=== PATIENT | male | born 1965 | race Caucasian/White ===

== ENCOUNTER 2017-12-17 12:24 | Day surgery (SDC) | payer OTHER ==
[2017-12-13 10:20] VITALS: BMI 31.1
[~2017-12-17 12:24] MED LIST: LACTATED RINGERS 1,000 ML IV SCH
[2017-12-17 12:58] VITALS: RESP 16; TEMP 98.2
[2017-12-17] MEDS ORDERED: LIDOCAINE 1% 20 ML VIAL (10MG/ML) FOR IV START INTRADERMA ONE (13:06)
[2017-12-17] MEDS ORDERED: LIDOCAINE 1% INJ 10MG/ML (20 ML MDV) ONE (13:12)
[2017-12-17] MEDS ORDERED: PROPOFOL 10 MG/ML 20 ML VIAL IV ONE (13:12)
--- NOTE | 2017-12-17 13:34 | P.PCN ---
Date of Procedure: 12/17/17 Procedure(s) Performed: Procedure: Total colonoscopy. Preoperative diagnosis: Screening for neoplasia. Postoperative diagnosis: Diverticulosis with no evidence of acute diverticulitis , strictures, polyps or cancer. Preparation: HalfLytely prep. Sedation: Was provided by anesthesia. Brief clinical history: The patient is a 52-year-old male who is scheduled for this evaluation for screening for neoplasia age being his risk factor. There is no family history of colon cancer. The patient had no prior colonoscopy. He has no abdominal complaints, bleeding or anemia. Procedure: With the patient on his left lateral decubitus position and after informed consent and adequate sedation, the perianal area was inspected and it did not show any fissures or fistulas. There were no masses felt on digital rectal examination. The Olympus CFQ 160L video colonoscope was then inserted in the rectum in the usual fashion and advanced to the cecum. There were multiple diverticular orifices seen scattered along the length of the bowel, both on the right and left side, with no evidence of acute diverticulitis or strictures. No polyps or tumors were seen. I retroflexed the endoscope in the rectum before the endoscope was withdrawn. The patient tolerated the procedure well. Plan: The patient was reassured. Discussed dietary measures. He will follow up with you as planned. I recommended repeat exam in 10 years.
[2017-12-17 13:54] VITALS: BP 119/78; PULSE 74
== END 2017-12-17 14:14 | disposition home or self-care (01) ==
LOC: ORWHC2ENDO 12:24
DX: Z12.11 Encounter for screening for malignant neoplasm of colon (principal); K57.30 Diverticulosis of large intestine without perforation or abscess without bleeding; Z88.0 Allergy status to penicillin
CPT/HCPCS: J2001; J2704; G0121

== ENCOUNTER → 2019-04-03 | Outpatient (CLI) | payer BC ==
--- NOTE | 2019-04-03 12:16 | ECHOS ---
STRESS ECHOCARDIOGRAM DATE OF SERVICE: 04/03/2019 INDICATIONS: Short of breath. MEDICATIONS: BASELINE HEART RATE: 78 BASELINE BLOOD PRESSURE: 138/75 MAXIMUM HEART RATE: 157 MAXIMUM BLOOD PRESSURE: 190/66 85% MPHR: 141 100% MPHR: 166 METS: 10.9 MAXIMUM STAGE REACHED: V TOTAL EXERCISE TIME: 9 minutes 40 seconds CLINICAL INFORMATION: Patient was exercised for a total period of 9 minutes and 40 seconds. The peak heart rate of 157 was achieved. Maximum blood pressure of 190/66 mmHg was noted. Resting EKG shows normal sinus rhythm with normal CA interval and QRS duration and normal ST-T waves. No ST-segment depression suggestive of ischemia was noted. Intermittent PVCs and PACs were noted. Occasional ventricular couplets were noted. The baseline echocardiographic images reveals normal left ventricular chamber size with normal left ventricular systolic function. In the immediate postexercise period, normal increase in the wall thickness and contractility is noted. FINAL IMPRESSION: 1. This stress echocardiographic study is negative for stress-induced ischemia. 2. EKG portion of the stress is not suggestive of ischemia. 3. Occasional PVCs and occasional ventricular couplets were noted during and in the postexercise period. 4. Patient's exercise tolerance is normal. MMODL / IJN: [id number] /
== END | disposition home or self-care (01) ==
LOC: RADNMMAIN 08:59
PROVIDERS: ATTEND Nurse Practitioner
DX: R06.02 Shortness of breath (principal)
CPT/HCPCS: 93351; Q9950

== ENCOUNTER 2022-10-13 15:13 | Inpatient (IN) | payer OTHER ==
[2022-10-13] MEDS ORDERED: SODIUM CHLORIDE 0.9% 1,000 ML IV STA (15:35)
--- NOTE | 2022-10-13 16:06 | ED ---
Abdominal Pain HPI - General Chief Complaint: Abdominal Pain Stated Complaint: abnormal CT scan Time Seen by Provider: 10/13/22 15:15 Source: patient Mode of arrival: ambulatory Limitations: no limitations - History of Present Illness Initial Comments: 57-year-old male presents to the emergency departments with one week worth of abdominal pain. States that he wanted vacation a week ago and began having significant periumbilical and right-sided abdominal pain. He has seen his primary care physician twice in the past week for this complaint. He had laboratory studies conducted both times. His primary care doctor provided him with bentyl to take for his symptoms. They ordered an outpatient CT which was completed today. After the study was performed it was recommended that the patient come into the emergency department to be immediately evaluated. He states his pain is markedly improved at this time. No fevers. Denies any nausea or vomiting. No diarrhea, constipation, black or bloody stools. No other alleviating, precipitating or modifying factors - Related Data Previous Rx's Medication Instructions Recorded cefUROXime axetiL [Cefuroxime] 500 mg PO BID 10 Days #20 tab 10/17/22 metroNIDAZOLE [Flagyl] 500 mg PO TID 10 Days #30 tab 10/17/22 Allergies Allergy/AdvReac Type Severity Reaction Status Date / Time Penicillins Allergy Unknown Verified 10/13/22 16:08 Childhood Review of Systems ROS Statement: Those systems with pertinent positive or pertinent negative responses have been documented in the HPI. ROS Other: All systems not noted in ROS Statement are negative. Past Medical History Past Medical History: No Reported History History of Any Multi-Drug Resistant Organisms: None Reported Past Surgical History: Back Surgery Additional Past Surgical History / Comment(s): FATTY CYST REMOVED FROM CHEST Past Anesthesia/Blood Transfusion Reactions: Postoperative Nausea & Vomiting (PONV) Past Psychological History: No Psychological Hx Reported Smoking Status: Never smoker Past Alcohol Use History: Rare Past Drug Use History: None Reported - Past Family History Father Family Medical History: Cancer Additional Family Medical History / Comment(s): MELENOMA General Exam Limitations: no limitations General appearance: alert, in no apparent distress Head exam: Present: atraumatic, normocephalic, normal inspection Eye exam: Present: normal appearance, PERRL, EOMI. Absent: scleral icterus, conjunctival injection, periorbital swelling ENT exam: Present: normal exam, mucous membranes moist Neck exam: Present: normal inspection. Absent: tenderness, meningismus, lymphadenopathy Respiratory exam: Present: normal lung sounds bilaterally. Absent: respiratory distress, wheezes, rales, rhonchi, stridor Cardiovascular Exam: Present: regular rate, normal rhythm, normal heart sounds. Absent: systolic murmur, diastolic murmur, rubs, gallop, clicks GI/Abdominal exam: Present: soft, tenderness (mild left periumbilical), normal bowel sounds. Absent: distended, guarding, rebound, rigid Extremities exam: Present: normal inspection, full ROM, normal capillary refill. Absent: tenderness, pedal edema, joint swelling, calf tenderness Back exam: Present: normal inspection Neurological exam: Present: alert, oriented X3, CN II-XII intact Psychiatric exam: Present: normal affect, normal mood Skin exam: Present: warm, dry, intact, normal color. Absent: rash Course Vital Signs 10/13/22 15:15 Temperature 99.6 F Pulse Rate 87 Respiratory 18 Rate Blood Pressure 135/79 O2 Sat by Pulse 98 Oximetry Medical Decision Making - Medical Decision Making Was pt. sent in by a medical professional or institution (, PA, SHEET ROLLER OPERATOR, urgent care, hospital, or senior living...) When possible be specific @ -Outpatient CT Did you speak to anyone other than the patient for history (EMS, parent, family, police, friend...)? What history was obtained from this source @ -No Did you review nursing and triage notes (agree or disagree)? Why? @ -I reviewed and agree with nursing and triage notes Were old charts reviewed (outside hosp., previous admission, EMS record, old EKG, old radiological studies, urgent care reports/EKG's, senior living records)? Report findings @ -old charts were reviewed - outpatient ct from today Differential Diagnosis (chest pain, altered mental status, abdominal pain women, abdominal pain men, vaginal bleeding, weakness, fever, dyspnea, syncope, headache, dizziness, GI bleed, back pain, seizure, CVA, palpatations, mental health, musculoskeletal)? @ diverticulitis, free air, colonic mass EKG interpreted by me (3pts min.). @ -yes X-rays interpreted by me (1pt min.). @ - none done CT interpreted by me (1pt min.). @ -None done U/S interpreted by me (1pt. min.). @ -None done What testing was considered but not performed or refused? (CT, X-rays, U/S, labs)? Why? @ -None What meds were considered but not given or refused? Why? @ -None Did you discuss the management of the patient with other professionals (p madayfessionals i.e. , PA, SHEET ROLLER OPERATOR, lab, RT, psych nurse, social media marketing manager, quantitative associate, teacher, security flex officer, case management associate)? Give summary @ -Dr. Rodney Was smoking cessation discussed for >3mins.? @ -No Was critical care preformed (if so, how long)? @ -No Were there social determinants of health that impacted care today? How? (Homelessness, low income, unemployed, alcoholism, drug addiction, t ransportation, low edu. Level, literacy, decrease access to med. care, nursing home, rehab)? @ -No Was there de-escalation of care discussed even if they declined (Discuss DNR or withdrawal of care, Hospice)? DNR status @ -No What co-morbidities impacted this encounter? (DM, HTN, Smoking, COPD, CAD, Cancer, CVA, ARF, Chemo, Hep., AIDS, mental health diagnosis, sleep apnea, morbid obesity)? @ -None Was patient admitted / discharged? Hospital course, mention meds given and route, prescriptions, significant lab abnormalities, going to OR and other pertinent info. @ -Upon arrival the patient is placed into trauma 1. History and physical exam is performed. I did review the patient's CT which demonstrated acute diverticulitis with perforation. Called and spoke with Dr. Rodney who is on-call for surgery. She does review the patient's CT. Recommended bowel rest and p ain medications. Antibiotics and fluids. She requested patient be admitted to medicine with her to consult. I called and spoke with Dr. velásquez who was agreeable to admit the patient. He is taking to the floor in stable condition Undiagnosed new problem with uncertain prognosis? @ -No Drug Therapy requiring intensive monitoring for toxicity (Heparin, Nitro, Insulin, Cardizem)? @ -No Were any procedures done? @ -No Diagnosis/symptom? @ -acute abd pain, diverticulitis with perf Acute, or Chronic, or Acute on Chronic? @ -acute Uncomplicated (without systemic symptoms) or Complicated (systemic symptoms)? @ -complicated Side effects of treatment? @ -No Exacerbation, Progression, or Severe Exacerbation? @ -No Poses a threat to life or bodily function? How? (Chest pain, USA, MT, pneumonia, PE, COPD, DKA, ARF, appy, cholecystitis, CVA, Diverticulitis, Homicidal, Suicidal, threat to staff... and all critical care pts) @ -yes - Lab Data Result diagrams: 10/17/22 07:34 10/17/22 07:34 Lab Results 10/13/22 10/13/22 10/13/22 Range/Units 16:00 16:00 16:00 WBC 12.2 H (3.8-10.6) k/uL RBC 4.59 (4.30-5.90) m/uL Hgb 14.3 (13.0-17.5) gm/dL Hct 41.6 (39.0-53.0) % MCV 90.6 (80.0-100.0) fL MCH 31.1 (25.0-35.0) pg MCHC 34.3 (31.0-37.0) g/dL RDW 12.0 (11.5-15.5) % Plt Count 320 (150-450) k/uL MPV 7.1 Neutrophils % 78 % Lymphocytes % 13 % Monocytes % 5 % Eosinophils % 1 % Basophils % 0 % Neutrophils # 9.5 H (1.3-7.7) k/uL Lymphocytes # 1.6 (1.0-4.8) k/uL Monocytes # 0.6 (0-1.0) k/uL Eosinophils # 0.1 (0-0.7) k/uL Basophils # 0.0 (0-0.2) k/uL PT 10.7 (9.0-12.0) sec INR 1.0 (<1.2) APTT 24.2 (22.0-30.0) sec Sodium 134 L (137-145) mmol/L Potassium 3.9 (3.5-5.1) mmol/L Chloride 101 (98-107) mmol/L Carbon Dioxide 23 (22-30) mmol/L Anion Gap 10 mmol/L BUN 12 (9-20) mg/dL Creatinine 1.06 (0.66-1.25) mg/dL Est GFR (CKD-EPI)AfAm 90 (>60 ml/min/1.73 sqM) Est GFR (CKD-EPI)NonAf 78 (>60 ml/min/1.73 sqM) Glucose 97 (74-99) mg/dL Plasma Lactic Acid Moses (0.7-2.0) mmol/L Calcium 9.0 (8.4-10.2) mg/dL Total Bilirubin 0.6 (0.2-1.3) mg/dL AST 28 (17-59) U/L ALT 43 (4-49) U/L Alkaline Phosphatase 90 (38-126) U/L Total Protein 7.7 (6.3-8.2) g/dL Albumin 4.1 (3.5-5.0) g/dL Lipase 205 (23-300) U/L 10/13/22 Range/Units 16:00 WBC (3.8-10.6) k/uL RBC (4.30-5.90) m/uL Hgb (13.0-17.5) gm/dL Hct (39.0-53.0) % MCV (80.0-100.0) fL MCH (25.0-35.0) pg MCHC (31.0-37.0) g/dL RDW (11.5-15.5) % Plt Count (150-450) k/uL MPV Neutrophils % % Lymphocytes % % Monocytes % % Eosinophils % % Basophils % % Neutrophils # (1.3-7.7) k/uL Lymphocytes # (1.0-4.8) k/uL Monocytes # (0-1.0) k/uL Eosinophils # (0-0.7) k/uL Basophils # (0-0.2) k/uL PT (9.0-12.0) sec INR (<1.2) APTT (22.0-30.0) sec Sodium (137-145) mmol/L Potassium (3.5-5.1) mmol/L Chloride (98-107) mmol/L Carbon Dioxide (22-30) mmol/L Anion Gap mmol/L BUN (9-20) mg/dL Creatinine (0.66-1.25) mg/dL Est GFR (CKD-EPI)AfAm (>60 ml/min/1.73 sqM) Est GFR (CKD-EPI)NonAf (>60 ml/min/1.73 sqM) Glucose (74-99) mg/dL Plasma Lactic Acid Moses 1.1 (0.7-2.0) mmol/L Calcium (8.4-10.2) mg/dL Total Bilirubin (0.2-1.3) mg/dL AST (17-59) U/L ALT (4-49) U/L Alkaline Phosphatase (38-126) U/L Total Protein (6.3-8.2) g/dL Albumin (3.5-5.0) g/dL Lipase (23-300) U/L - EKG Data EKG Comments: EKG demonstrates sinus rhythm with a rate of 97. SD interval 147. QRS 84. Qtc 395. No acute ST segment elevations or depressions Disposition Clinical Impression: Diverticulitis of colon with perforation, Abdominal pain Disposition: ADMITTED IP TO THIS [facility] Condition: Stable Is patient prescribed a controlled substance at d/c from ED?: No Time of Disposition: 16:18 Decision to Admit Reason: Admit from EC Decision Date: 10/13/22 Decision Time: 16:18
[2022-10-13 16:10] LABS: Basophils % (A) 0 %; Eosinophils # (A) 0.1 k/uL (0-0.7); Eosinophils % (A) 1 %; HCT 41.6 % (39.0-53.0); HGB 14.3 gm/dL (13.0-17.5); Lymphocytes # (A) 1.6 k/uL (1.0-4.8); Lymphocytes % (A) 13 %; MCH 31.1 pg (25.0-35.0); MCHC 34.3 g/dL (31.0-37.0); MCV 90.6 fL (80.0-100.0); Mean Platelet Volume 7.1; Monocytes # (A) 0.6 k/uL (0-1.0); Monocytes % (A) 5 %; Neutrophils # (A) 9.5 k/uL (1.3-7.7); Neutrophils % (A) 78 %; Platelet Count 320 k/uL (150-450); RBC 4.59 m/uL (4.30-5.90); WBC 12.2 k/uL (3.8-10.6)
[2022-10-13 16:20] LABS: Partial Thromboplastin Time 24.2 sec (22.0-30.0); Prothrombin Time 10.7 sec (9.0-12.0)
[2022-10-13 16:25] LABS: Albumin 4.1 g/dL (3.5-5.0); Potassium 3.9 mmol/L (3.5-5.1); Total Bilirubin 0.6 mg/dL (0.2-1.3); Total Protein 7.7 g/dL (6.3-8.2)
[2022-10-13] MEDS ORDERED: metroNIDAZOLE-NS PMX 500 MG in SALINE 1 100ML.BAG IVPB ONE (16:30)
[2022-10-13] MEDS ORDERED: LEVOFLOXACIN 750MG-D5W PMX 750 MG in DEXTROSE/WATER 1 150ML.BAG IVPB ONE (16:30)
[2022-10-13] MEDS ORDERED: MORPHINE SULFATE 4 MG/ML SYRINGE IV PRN (16:57)
[2022-10-13] MEDS ORDERED: NALOXONE 0.4 MG/ML 1 ML VIAL IV PRN (16:57)
[2022-10-13] MEDS ORDERED: IBUPROFEN 400 MG TAB PO PRN (16:57)
[2022-10-13] MEDS ORDERED: HYDROcodone/APAP 5-325MG 1 EACH TAB PO PRN (16:57)
[2022-10-13] MEDS ORDERED: ONDANSETRON 4 MG/2 ML VIAL IVP PRN (16:57)
[2022-10-13] MEDS ORDERED: SODIUM CHLORIDE 0.9% 1,000 ML IV SCH (17:00)
[2022-10-13] MEDS: DEXTROSE 5%-0.9% NACL 1,000 ML IV SCH (18:01)
[2022-10-13] MEDS: ACETAMINOPHEN TAB 325 MG TAB PO PRN (20:43)
--- NOTE | 2022-10-13 22:39 | P.HPIM ---
History of Present Illness This is a pleasant 57 years old male with no significant past medical history Presents because of abdominal pain as he describes as stomach and has been going on about 10 days He followed up with his PCP Dr. Perkins and he saw twice for his abdominal pain, last time he ordered a CT of the abdomen and That he was called and asked him to come to the emergency room. His pain is described as 2-3/10 in severity Rupa is much milder compared to last week as he describes, he is in the right mid abdomen. Nonradiating. Feels like cramping He states that he has some diarrhea and vomiting 1 week ago but now all these are when awake. Last bowel movement was twice this morning one of them was fine and the other one was close. No blood in the stool or vomiting. He denies any urinary symptoms, no chest pain dyspnea, no headache perfusion weakness or numbness He denies smoking alcohol or illicit drugs He had a fever of 100.4 on admission rest of vitals are unremarkable. He has mild leukocytosis of 12.2. Rest of CBC, BMP and liver enzymes are unremarkable. Lipase normal 205. EKG showing normal sinus rhythm at [address]-T changes Patient has CT report from this morning showing complicated diverticulitis with perforation and free air. Clearly abscess formation measuring 2.8 x 2.6 cm. This is not amenable to percutaneous access for drainage. Surgical consultation recommended. Colonic diverticulosis patient was started on D5 normal saline and Levaquin and Flagyl Review of Systems Review of systems CONSTITUTIONAL: No fever, no malaise, no fatigue. HEENT: No recent visual problems or hearing problems. Denied any sore throat. CARDIOVASCULAR: No orthopnea, PND, no palpitations, no syncope. PULMONARY: No shortness of breath, no cough, no hemoptysis. GASTROINTESTINAL: No diarrhea, no nausea, . Normoactive bowel sounds. NEUROLOGICAL: No headaches, no weakness, no numbness. HEMATOLOGICAL: Denies any bleeding or petechiae. GENITOURINARY: Denies any burning micturition, frequency, or urgency. MUSCULOSKELETAL/RHEUMATOLOGICAL: Denies any joint pain, swelling, or any muscle pain. ENDOCRINE: Denies any polyuria or polydipsia. Past Medical History Past Medical History: No Reported History History of Any Multi-Drug Resistant Organisms: None Reported Past Surgical History: Back Surgery Additional Past Surgical History / Comment(s): FATTY CYST REMOVED FROM CHEST Past Anesthesia/Blood Transfusion Reactions: Postoperative Nausea & Vomiting (PONV) Past Psychological History: No Psychological Hx Reported Smoking Status: Never smoker Past Alcohol Use History: Rare Past Drug Use History: None Reported - Past Family History Father Family Medical History: Cancer Additional Family Medical History / Comment(s): MELENOMA Medications and Allergies Home Medications Medication Instructions Recorded Confirmed Type No Known Home Medications 12/13/17 10/13/22 History Allergies Allergy/AdvReac Type Severity Reaction Status Date / Time Penicillins Allergy Unknown Verified 10/13/22 16:08 Childhood Physical Exam Vitals: Vital Signs Temp Pulse Pulse Resp BP BP Pulse Ox 10/13/22 19:14 100.4 F H 89 15 143/81 96 10/13/22 18:02 98.3 F 89 18 143/77 97 10/13/22 17:50 96 18 127/69 98 10/13/22 15:15 99.6 F 87 18 135/79 98 Intake and Output 10/13/22 10/13/22 10/13/22 06:59 14:59 22:59 Output Total 0 Balance 0 Output: Urine 0 Other: Voiding Method Toilet Weight 109.724 kg GENERAL: The patient is alert and oriented x3, not in any acute distress. Well developed, well nourished. HEENT: Pupils are round and equally reacting to light. EOMI. No scleral icterus. No conjunctival pallor. Normocephalic, atraumatic. No pharyngeal erythema. No thyromegaly. CARDIOVASCULAR: S1 and S2 present. No murmurs, rubs, or gallops. PULMONARY: Chest is clear to auscultation, no wheezing or crackles. -ABDOMEN: Soft, mild right mid abdominal tenderness, no guarding or rebound tenderness, nondistended, normoactive bowel sounds. No palpable organomegaly. MUSCULOSKELETAL: No joint swelling or deformity. EXTREMITIES: No cyanosis, clubbing, or pedal edema. NEUROLOGICAL: Gross neurological examination did not reveal any focal deficits. SKIN: No rashes. no petechiae. Results CBC & Chem 7: 10/13/22 16:00 10/13/22 16:00 Labs: Abnormal Lab Results - Last 24 Hours (Table) 10/13/22 10/13/22 Range/Units 16:00 16:00 WBC 12.2 H (3.8-10.6) k/uL Neutrophils # 9.5 H (1.3-7.7) k/uL Sodium 134 L (137-145) mmol/L Thrombosis Risk Factor Assmnt - Choose All That Apply Any of the Below Risk Factors Present?: No Other Risk Factors: No Other congenital or acquired thrombophilia - If yes, enter type in comment: No Thrombosis Risk Factor Assessment Level: Very Low Risk Assessment and Plan Assessment: acute complicated diverticulitis with perforation and abscess Sepsis with mild fever and leukocytosis secondary to above Abdominal pain secondary to above Obesity with BMI of 32.8 Colonic diverticulosis Plan: Continue with antibiotic Flagyl and Levaquin Surgical team consult Continue gentle hydration Bowel rest Pain medication Labs and medication were reviewed.. Continue same treatment. Continue with symptomatic treatment. Resume home medication. Monitor labs and vitals. DVT and GI prophylaxis. Further recommendations as per clinical course of the patient DVT prophylaxis: Subcutaneous heparin GI Prophylaxis: Pepcid Prognosis is guarded
[2022-10-14] MEDS: metroNIDAZOLE-NS PMX 500 MG in SALINE 1 100ML.BAG IVPB SCH ×3 (00:13→15:27)
[2022-10-14] MEDS: DEXTROSE 5%-0.9% NACL 1,000 ML IV SCH ×2 (01:12→21:22)
[2022-10-14] MEDS: HEPARIN SODIUM,PORCINE/PF 5,000 UNIT/0.5 ML SYRINGE SQ SCH ×2 (09:53→21:22)
[2022-10-14] MEDS: FAMOTIDINE 20 MG/2 ML VIAL IV SCH ×2 (09:53→21:22)
[2022-10-14 13:35] LABS: African American GFR (CKD) 85.3 (60.0-200.0); Anion Gap 12.3 mmol/L (10.00-18.00); BUN/Creat Ratio 8.27 Ratio (12.00-20.00); Blood Urea Nitrogen 9.1 mg/dL (9.0-27.0); Calcium 8.9 mg/dL (8.7-10.3); Carbon Dioxide 20.7 mmol/L (20.0-27.5); Non-African American GFR(CKD) 73.6 (60.0-200.0)
[2022-10-14 14:50] LABS: Basophils # (A) 0.03 X 10*3/uL (0.00-0.10); Basophils % (A) 0.2 %; Eosinophils # (A) 0.02 X 10*3/uL (0.04-0.35); Eosinophils % (A) 0.2 %; HCT 40.3 % (39.6-50.0); HGB 13.8 g/dL (13.0-17.0); Immature Grans, Automated 0.5 %; Lymphocytes # (A) 1.82 X 10*3/uL (0.90-5.00); Lymphocytes % (A) 13.7 %; MCH 31.2 pg (27.0-32.0); MCHC 34.2 g/dL (32.0-37.0); Mean Platelet Volume 9.7 fL (9.5-12.2); Monocytes # (A) 1.08 X 10*3/uL (0.20-1.00); Monocytes % (A) 8.2 %; NRBC Per 100 WBC 0 /100 WBCS (0.0-0.0); Neutrophils # (A) 10.23 X 10*3/uL (1.80-7.70); Neutrophils % (A) 77.2 %; Platelet Count 265 X 10*3/uL (140-440); RBC 4.43 X 10*6/uL (4.40-5.60); WBC 13.24 X 10*3/uL (4.50-10.00)
[2022-10-14 14:51] LABS: RBC Morphology NORMAL
[2022-10-14] MEDS: ACETAMINOPHEN TAB 325 MG TAB PO PRN ×2 (15:27→21:22)
[2022-10-14] MEDS ORDERED: LEVOFLOXACIN 750MG-D5W PMX 750 MG in DEXTROSE/WATER 1 150ML.BAG IVPB SCH (16:00)
--- NOTE | 2022-10-14 18:01 | P.PN ---
Subjective This is a pleasant 57 years old male with no significant past medical history Presents because of abdominal pain as he describes as stomach and has been going on about 10 days He followed up with his PCP Dr. Perkins and he saw twice for his abdominal pain, last time he ordered a CT of the abdomen and That he was called and asked him to come to the emergency room. His pain is described as 2-3/10 in severity Rupa is much milder compared to last week as he describes, he is in the right mid abdomen. Nonradiating. Feels like cramping He states that he has some diarrhea and vomiting 1 week ago but now all these are when awake. Last bowel movement was twice this morning one of them was fine and the other one was close. No blood in the stool or vomiting. He denies any urinary symptoms, no chest pain dyspnea, no headache perfusion weakness or numbness He denies smoking alcohol or illicit drugs He had a fever of 100.4 on admission rest of vitals are unremarkable. He has mild leukocytosis of 12.2. Rest of CBC, BMP and liver enzymes are unre markable. Lipase normal 205. EKG showing normal sinus rhythm at [address]-T changes Patient has CT report from this morning showing complicated diverticulitis with perforation and free air. Clearly abscess formation measuring 2.8 x 2.6 cm. This is not amenable to percutaneous access for drainage. Surgical consultation recommended. Colonic diverticulosis patient was started on D5 normal saline and Levaquin and Flagyl Objective - Vital Signs Vital signs: Vital Signs Temp 99.6 F 10/14/22 06:53 Pulse 95 10/14/22 06:53 Resp 16 10/14/22 06:53 BP 128/73 10/14/22 06:53 Pulse Ox 94 L 10/14/22 06:53 FiO2 Intake & Output 10/13/22 10/14/22 10/14/22 18:59 06:59 18:59 Output Total 0 Balance 0 Weight 109.724 kg Output: Urine 0 Other: Voiding Method Toilet # Voids 3 - Exam GENERAL: The patient is alert and oriented x3, not in any acute distress. Well developed, well nourished. HEENT: Pupils are round and equally reacting to light. EOMI. No scleral icterus. No conjunctival pallor. Normocephalic, atraumatic. No pharyngeal erythema. No thyromegaly. CARDIOVASCULAR: S1 and S2 present. No murmurs, rubs, or gallops. PULMONARY: Chest is clear to auscultation, no wheezing or crackles. -ABDOMEN: Soft, mild RLQ tenderness, nondistended, normoactive bowel sounds. No palpable organomegaly. MUSCULOSKELETAL: No joint swelling or deformity. EXTREMITIES: No cyanosis, clubbing, or pedal edema. NEUROLOGICAL: Gross neurological examination did not reveal any focal deficits. SKIN: No rashes. no petechiae. - Labs CBC & Chem 7: 10/14/22 07:29 10/14/22 07:29 Labs: Abnormal Lab Results - Last 24 Hours (Table) 10/13/22 10/13/22 Range/Units 16:00 16:00 WBC 12.2 H (3.8-10.6) k/uL Neutrophils # 9.5 H (1.3-7.7) k/uL Sodium 134 L (137-145) mmol/L Assessment and Plan Assessment: acute complicated diverticulitis with perforation and abscess Sepsis with mild fever and leukocytosis secondary to above Abdominal pain secondary to above Obesity with BMI of 32.8 Colonic diverticulosis Plan: Continue with antibiotic Flagyl and Levaquin Surgical team consult already called from the emergency room. Infectious disease consult since patient has persistent fever and leukocytosis Continue gentle hydration Bowel rest Pain medication Labs and medication were reviewed.. Continue same treatment. Continue with symptomatic treatment. Resume home medication. Monitor labs and vitals. DVT and GI prophylaxis. Further recommendations as per clinical course of the patient DVT prophylaxis: Subcutaneous heparin GI Prophylaxis: Pepcid Prognosis is guarded
--- NOTE | 2022-10-14 19:32 | P.GSCN ---
History of Present Illness Consult date: 10/14/22 Reason for Consult: diverticulitis with microperforation History of present illness: Developed abdominal pain about a week or so ago when on trip to [place]. [place] little better than got worse again. Was seen by his PCP a couple times and was eventually sent for a CT scan. CT reviewed, diverticulitis with microperforation with small abscess. Last colonoscopy was 5 years ago & was told he has diverticulitis; had a 10 year recall because no polyps. Today feeling better but feeling depressed. Abdominal pain improved. Wanting something to drink. Review of Systems - Constitutional Reports as per HPI - Cardiovascular Reports as per HPI - Respiratory Reports as per HPI - Gastrointestinal Reports as per HPI - Genitourinary Reports as per HPI - Musculoskeletal Reports as per HPI - Integumentary Reports as per HPI - Neurological Reports as per HPI - Psychiatric Reports as per HPI - Endocrine Reports as per HPI - Hematologic/Lymphatic Reports as per HPI - Allergic/Immunologic Reports as per HPI Past Medical History Past Medical History: No Reported History History of Any Multi-Drug Resistant Organisms: None Reported Past Surgical History: Back Surgery Additional Past Surgical History / Comment(s): FATTY CYST REMOVED FROM CHEST Past Anesthesia/Blood Transfusion Reactions: Postoperative Nausea & Vomiting (PONV) Past Psychological History: No Psychological Hx Reported Smoking Status: Never smoker Past Alcohol Use History: Rare Past Drug Use History: None Reported - Past Family History Father Family Medical History: Cancer Additional Family Medical History / Comment(s): MELENOMA, diverticulitis Medications and Allergies Home Medications Medication Instructions Recorded Confirmed Type No Known Home Medications 12/13/17 10/13/22 History Allergies Allergy/AdvReac Type Severity Reaction Status Date / Time Penicillins Allergy Unknown Verified 10/13/22 16:08 Childhood Surgical - Exam Vital Signs Temp Pulse Resp BP Pulse Ox 99.6 F 87 18 135/79 98 10/13/22 15:15 10/13/22 15:15 10/13/22 15:15 10/13/22 15:15 10/13/22 15:15 - General non toxic appearing well developed, well nourished, no distress - Eyes no icteric - ENT no hearing loss - Neck supple - Respiratory normal respiratory effort, clear to auscultation - Cardiovascular Rhythm: regular Abnormal Heart Sounds: no systolic murmur, no diastolic murmur - Abdomen minimally tender with no signs of peritonitis Abdomen: soft, no guarding, no rigid, no rebound, no distended - Integumentary no rash - Neurologic no gross deficits - Musculoskeletal no LE edema - Psychiatric alert & oriented, normal affect, normal insight & judgment Results - Labs 10/14/22 07:29 10/14/22 07:29 Abnormal Lab Results - Last 24 Hours (Table) 10/14/22 10/14/22 10/14/22 Range/Units 07:29 07:29 07:29 WBC 13.24 H (4.50-10.00) X 10*3/uL Immature Gran # 0.06 H (0.00-0.04) X 10*3/uL Neutrophils # 10.23 H (1.80-7.70) X 10*3/uL Monocytes # 1.08 H (0.20-1.00) X 10*3/uL Eosinophils # 0.02 L (0.04-0.35) X 10*3/uL BUN/Creatinine Ratio 8.27 L (12.00-20.00) Ratio Glucose 117 H (70-110) mg/dL Procalcitonin 0.52 H (0.02-0.09) ng/mL Diabetes panel 10/14/22 Range/Units 07:29 Sodium 135 (135-145) mmol/L Potassium 4.0 (3.5-5.5) mmol/L Chloride 102 (96-109) mmol/L Carbon Dioxide 20.7 (20.0-27.5) mmol/L BUN 9.1 (9.0-27.0) mg/dL Creatinine 1.1 (0.6-1.5) mg/dL Glucose 117 H (70-110) mg/dL Calcium 8.9 (8.7-10.3) mg/dL Calcium panel 10/14/22 Range/Units 07:29 Calcium 8.9 (8.7-10.3) mg/dL Pituitary panel 10/14/22 Range/Units 07:29 Sodium 135 (135-145) mmol/L Potassium 4.0 (3.5-5.5) mmol/L Chloride 102 (96-109) mmol/L Carbon Dioxide 20.7 (20.0-27.5) mmol/L BUN 9.1 (9.0-27.0) mg/dL Creatinine 1.1 (0.6-1.5) mg/dL Glucose 117 H (70-110) mg/dL Calcium 8.9 (8.7-10.3) mg/dL Adrenal panel 10/14/22 Range/Units 07:29 Sodium 135 (135-145) mmol/L Potassium 4.0 (3.5-5.5) mmol/L Chloride 102 (96-109) mmol/L Carbon Dioxide 20.7 (20.0-27.5) mmol/L BUN 9.1 (9.0-27.0) mg/dL Creatinine 1.1 (0.6-1.5) mg/dL Glucose 117 H (70-110) mg/dL Calcium 8.9 (8.7-10.3) mg/dL - Imaging CT scan - abdomen: report reviewed, image reviewed CT scan - pelvis: report reviewed, image reviewed Assessment and Plan Assessment: abdominal pain, from acute diverticulitis with microperforation leukocytosis, low grade Plan: bowel rest, IVF OK for few ice chips continue abx no indication for acute surgical intervention but will closely monitor - if develops peritonitis, will need surgery will need outpatient colonoscopy in 6-8 weeks after symptom resolution Time with Patient: Less than 30
[2022-10-15] MEDS: metroNIDAZOLE-NS PMX 500 MG in SALINE 1 100ML.BAG IVPB SCH ×4 (00:24→22:59)
[2022-10-15] MEDS: ACETAMINOPHEN TAB 325 MG TAB PO PRN ×2 (06:21→16:46)
[2022-10-15] MEDS: HEPARIN SODIUM,PORCINE/PF 5,000 UNIT/0.5 ML SYRINGE SQ SCH ×2 (08:18→22:57)
[2022-10-15] MEDS: FAMOTIDINE 20 MG/2 ML VIAL IV SCH ×2 (08:18→22:58)
[2022-10-15 09:17] LABS: African American GFR (CKD) 82.6 (60.0-200.0); Anion Gap 12.5 mmol/L (10.00-18.00); BUN/Creat Ratio 8.26 Ratio (12.00-20.00); Blood Urea Nitrogen 9.3 mg/dL (9.0-27.0); Calcium 8.8 mg/dL (8.7-10.3); Carbon Dioxide 20.4 mmol/L (20.0-27.5); Non-African American GFR(CKD) 71.3 (60.0-200.0); Potassium 4.2 mmol/L (3.5-5.5)
[2022-10-15 09:42] LABS: HCT 40.3 % (39.6-50.0); HGB 13.5 g/dL (13.0-17.0); MCH 30.8 pg (27.0-32.0); MCHC 33.5 g/dL (32.0-37.0); MCV 91.8 fL (80.0-97.0); Mean Platelet Volume 10.1 fL (9.5-12.2); NRBC Per 100 WBC 0 /100 WBCS (0.0-0.0); Platelet Count 274 X 10*3/uL (140-440); RBC 4.39 X 10*6/uL (4.40-5.60); WBC 11.79 X 10*3/uL (4.50-10.00)
--- NOTE | 2022-10-15 10:50 | P.PN ---
Subjective Progress Note Date: 10/15/22 Principal diagnosis: diverticulitis with microperforation Developed abdominal pain about a week or so ago when on trip to [place]. [place] little better than got worse again. Was seen by his PCP a couple times and was eventually sent for a CT scan. CT reviewed, diverticulitis with microperforation with small abscess. Last colonoscopy was 5 years ago & was told he has diverticulitis; had a 10 year recall because no polyps. Milk leukocytosis on admission. No tachycardia. Feeling much better today. Pain resolved. Feels like fever is breaking. White count down today. Tolerated ice chips. Couple small BM overnight. No tachycardia. Objective - Vital Signs Vital signs: Vital Signs Temp 98.8 F 10/15/22 08:27 Pulse 103 H 10/15/22 07:40 Resp 16 10/15/22 07:40 BP 133/76 10/15/22 07:01 Pulse Ox 97 10/15/22 07:01 FiO2 Intake & Output 10/14/22 10/15/22 10/15/22 18:59 06:59 18:59 Intake Total 0 480 Balance 0 480 Intake: Oral 0 480 Other: Voiding Method Toilet Toilet Toilet # Voids 1 2 - Constitutional General appearance: Present: cooperative, no acute distress - EENT Eyes: Present: anicteric sclerae - Neck Details: supple - Respiratory Details: non labored breathing, normal effort - Cardiovascular Rhythm: regular - Gastrointestinal General gastrointestinal: Present: soft. Absent: distended, rigid, tenderness - Integumentary Integumentary: Present: normal - Neurologic Neurologic Comment(s): no gross deficits - Musculoskeletal Musculoskeletal: Present: gait normal - Psychiatric Psychiatric Comment(s): cooperative, more cheerful affect, appropriate insight & judgment - Labs CBC & Chem 7: 10/15/22 04:47 10/15/22 04:47 Labs: Abnormal Lab Results - Last 24 Hours (Table) 10/14/22 10/14/22 10/14/22 Range/Units 07:29 07:29 07:29 WBC 13.24 H (4.50-10.00) X 10*3/uL RBC (4.40-5.60) X 10*6/uL Immature Gran # 0.06 H (0.00-0.04) X 10*3/uL Neutrophils # 10.23 H (1.80-7.70) X 10*3/uL Monocytes # 1.08 H (0.20-1.00) X 10*3/uL Eosinophils # 0.02 L (0.04-0.35) X 10*3/uL BUN/Creatinine Ratio 8.27 L (12.00-20.00) Ratio Glucose 117 H (70-110) mg/dL Procalcitonin 0.52 H (0.02-0.09) ng/mL 10/15/22 10/15/22 Range/Units 04:47 04:47 WBC 11.79 H (4.50-10.00) X 10*3/uL RBC 4.39 L (4.40-5.60) X 10*6/uL Immature Gran # (0.00-0.04) X 10*3/uL Neutrophils # (1.80-7.70) X 10*3/uL Monocytes # (0.20-1.00) X 10*3/uL Eosinophils # (0.04-0.35) X 10*3/uL BUN/Creatinine Ratio 8.26 L (12.00-20.00) Ratio Glucose (70-110) mg/dL Procalcitonin (0.02-0.09) ng/mL Microbiology - Last 24 Hours (Table) 10/13/22 18:45 Blood Culture - Preliminary Blood No Growth after 24 hours 10/13/22 17:00 Blood Culture - Preliminary Blood No Growth after 24 hours Assessment and Plan Assessment: abdominal pain, from acute diverticulitis with microperforation- resolved leukocytosis, low grade- down-trending today Plan: OK for clear liquids continue abx no indication for acute surgical intervention but will closely monitor - if develops peritonitis, will need surgery will need outpatient colonoscopy in 6-8 weeks after symptom resolution will also need outpatient repeat CT scan to evaluate for interval resolution of small abscess
[2022-10-15 11:39] LABS: Basophils # (A) 0.05 X 10*3/uL (0.00-0.10); Basophils % (A) 0.4 %; Eosinophils # (A) 0.03 X 10*3/uL (0.04-0.35); Eosinophils % (A) 0.3 %; Immature Grans, Automated 0.4 %; Lymphocytes # (A) 1.84 X 10*3/uL (0.90-5.00); Lymphocytes % (A) 15.6 %; Monocytes # (A) 1.04 X 10*3/uL (0.20-1.00); Monocytes % (A) 8.8 %; Neutrophils # (A) 8.78 X 10*3/uL (1.80-7.70); Neutrophils % (A) 74.5 %
[2022-10-15 11:40] LABS: RBC Morphology NORMAL
--- NOTE | 2022-10-15 14:12 | P.PN ---
Subjective Progress Note Date: 10/15/22 This is a pleasant 57 years old male with no significant past medical history Presents because of abdominal pain as he describes as stomach and has been going on about 10 days He followed up with his PCP Dr. Perkins and he saw twice for his abdominal pain, last time he ordered a CT of the abdomen and That he was called and asked him to come to the emergency room. His pain is described as 2-3/10 in severity Rupa is much milder compared to last week as he describes, he is in the right mid abdomen. Nonradiating. Feels like cramping He states that he has some diarrhea and vomiting 1 week ago but now all these are when awake. Last bowel movement was twice this morning one of them was fine and the other one was close. No blood in the stool or vomiting. He denies any urinary symptoms, no chest pain dyspnea, no headache perfusion weakness or numbness He denies smoking alcohol or illicit drugs He had a fever of 100.4 on admission rest of vitals are unremarkable. He has mild leukocytosis of 12.2. Rest of CBC, BMP and liver enzymes are unremarkable. Lipase normal 205. EKG showing normal sinus rhythm at [address]-T changes Patient has CT report from this morning showing complicated diverticulitis with perforation and free air. Clearly abscess formation measuring 2.8 x 2.6 cm. This is not amenable to percutaneous access for drainage. Surgical consultation recommended. Colonic diverticulosis patient was started on D5 normal saline and Levaquin and Flagyl 10/15. Patient seen and examined. White count this morning is 11.7, hemoglobin 13.5. Patient states abdominal pain has improved, denies any nausea or vomiting. Current tolerating clear liquid diet REVIEW OF SYSTEMS: CONSTITUTIONAL: No fever, no malaise,. CARDIOVASCULAR: No chest pain, no palpitations, no syncope. PULMONARY: No shortness of breath, no cough, GASTROINTESTINAL: No diarrhea, no nausea, no vomiting, no abdominal pain. NEUROLOGICAL: No headaches, no weakness, PHYSICAL EXAMINATION: GENERAL: The patient is alert and oriented x3, not in any acute distress. Well developed, well nourished. HEENT: Pupils are round and equally reacting to light. EOMI. No scleral icterus. No conjunctival pallor. Normocephalic, atraumatic. No pharyngeal erythema. No thyromegaly. CARDIOVASCULAR: S1 and S2 present. No murmurs, rubs, or gallops. PULMONARY: Chest is clear to auscultation, no wheezing or crackles. ABDOMEN: Soft, nontender, nondistended, normoactive bowel sounds. No palpable organomegaly. MUSCULOSKELETAL: No joint swelling or deformity. EXTREMITIES: No cyanosis, clubbing, or pedal edema. NEUROLOGICAL: Gross neurological examination did not reveal any focal deficits. SKIN: No rashes. Assessment and plan acute complicated diverticulitis with perforation and abscess Sepsis with mild fever and leukocytosis secondary to above Abdominal pain secondary to above Obesity with BMI of 32.8 Colonic diverticulosis Plan: Monitor vital signs Monitor CBC Monitor CMP Currently on clear liquid diet Continue with antibiotic Flagyl and Levaquin Surgery evaluated the patient and recommended bowel rest and IV fluids, patient develops signs and symptoms of peritonitis, patient will be needing surgical intervention Follow-up in ID recommendations Pain medication Labs and medication were reviewed.. Continue same treatment. Continue with symptomatic treatment. Further recommendations as per clinical course of the patient Objective - Vital Signs Vital signs: Vital Signs Temp 98.8 F 10/15/22 08:27 Pulse 103 H 10/15/22 07:40 Resp 16 10/15/22 07:40 BP 133/76 10/15/22 07:01 Pulse Ox 97 10/15/22 07:01 FiO2 Intake & Output 10/14/22 10/15/22 10/15/22 18:59 06:59 18:59 Intake Total 0 480 Balance 0 480 Intake: Oral 0 480 Other: Voiding Method Toilet Toilet Toilet # Voids 1 2 - Labs CBC & Chem 7: 10/15/22 04:47 10/15/22 04:47 Labs: Abnormal Lab Results - Last 24 Hours (Table) 10/14/22 10/14/22 10/14/22 Range/Units 07:29 07:29 07:29 WBC 13.24 H (4.50-10.00) X 10*3/uL RBC (4.40-5.60) X 10*6/uL Immature Gran # 0.06 H (0.00-0.04) X 10*3/uL Neutrophils # 10.23 H (1.80-7.70) X 10*3/uL Monocytes # 1.08 H (0.20-1.00) X 10*3/uL Eosinophils # 0.02 L (0.04-0.35) X 10*3/uL BUN/Creatinine Ratio 8.27 L (12.00-20.00) Ratio Glucose 117 H (70-110) mg/dL Procalcitonin 0.52 H (0.02-0.09) ng/mL 10/15/22 10/15/22 Range/Units 04:47 04:47 WBC 11.79 H (4.50-10.00) X 10*3/uL RBC 4.39 L (4.40-5.60) X 10*6/uL Immature Gran # (0.00-0.04) X 10*3/uL Neutrophils # (1.80-7.70) X 10*3/uL Monocytes # (0.20-1.00) X 10*3/uL Eosinophils # (0.04-0.35) X 10*3/uL BUN/Creatinine Ratio 8.26 L (12.00-20.00) Ratio Glucose (70-110) mg/dL Procalcitonin (0.02-0.09) ng/mL Microbiology - Last 24 Hours (Table) 10/13/22 18:45 Blood Culture - Preliminary Blood No Growth after 24 hours 10/13/22 17:00 Blood Culture - Preliminary Blood No Growth after 24 hours
[2022-10-15] MEDS: CEFEPIME 2 GM in SODIUM CHLORIDE 0.9% 100 ML IVPB SCH (16:42)
--- NOTE | 2022-10-15 21:27 | P.CONS ---
History of Present Illness - Reason for Consult Consult date: 10/15/22 - History of Present Illness Patient is a 57-year male with no significant past medical history presented to hospital with abdominal pain that has been going on for about a week pain has been mostly to the left lower abdominal and periumbilical area patient mention he felt nauseated but no vomiting and thought was more of a stomach flu patient symptoms subsequently improved however last Sunday patient symptom came back pain has been mostly sharp almost 7-8 out of 10 in severity mostly sharp with no radiation associated nausea but no vomiting or diarrhea and denies significant constipation with the symptoms the patient presented to the hospital on arrival to the ER the patient did have low-grade fever subsequently spiked a fever 100.4 and did have a fever of 101.8 F this morning patient was tachycardic did have a white count of 13.24 with a left shift kidney function has been normal liver enzymes are normal blood cultures obtained which is currently pending patient did have a outpatient CT abdominal pelvis that was completed the day of presentation to hospital with evidence of complex diverticulitis with perforation and free air early abscess formation measuring 2.8 to 2.6 cm patient has been admitted to hospital has been treated with Levaquin and Flagyl however the patient did have persistent fever that has prompted this infectious disease consultation Past Medical History Past Medical History: No Reported History History of Any Multi-Drug Resistant Organisms: None Reported Past Surgical History: Back Surgery Additional Past Surgical History / Comment(s): FATTY CYST REMOVED FROM CHEST Past Anesthesia/Blood Transfusion Reactions: Postoperative Nausea & Vomiting (PONV) Past Psychological History: No Psychological Hx Reported Smoking Status: Never smoker Past Alcohol Use History: Rare Past Drug Use History: None Reported - Past Family History Father Family Medical History: Cancer Additional Family Medical History / Comment(s): MELENOMA, diverticulitis Medications and Allergies Home Medications Medication Instructions Recorded Confirmed Type No Known Home Medications 12/13/17 10/13/22 History Allergies Allergy/AdvReac Type Severity Reaction Status Date / Time Penicillins Allergy Unknown Verified 10/13/22 16:08 Childhood Physical Exam Vitals: Vital Signs Temp Pulse Resp BP Pulse Ox 10/15/22 12:57 99.8 F H 95 18 146/85 97 10/15/22 08:27 98.8 F 10/15/22 07:40 103 H 16 10/15/22 07:01 101.8 F H 103 H 16 133/76 97 10/15/22 06:18 100.2 F H 10/15/22 02:27 100.5 F H 89 16 117/62 96 10/14/22 20:12 100.1 F H 89 19 134/63 97 10/14/22 20:00 89 19 Intake and Output 10/14/22 10/15/22 10/15/22 22:59 06:59 14:59 Intake Total 0 480 Balance 0 480 Intake: Oral 0 480 Other: Voiding Method Toilet Toilet # Voids 1 2 Results CBC & Chem 7: 10/15/22 04:47 10/15/22 04:47 Labs: Abnormal Lab Results - Last 24 Hours (Table) 10/14/22 10/15/22 10/15/22 Range/Units 07:29 04:47 04:47 WBC 13.24 H 11.79 H (4.50-10.00) X 10*3/uL RBC 4.39 L (4.40-5.60) X 10*6/uL Immature Gran # 0.06 H 0.05 H (0.00-0.04) X 10*3/uL Neutrophils # 10.23 H 8.78 H (1.80-7.70) X 10*3/uL Monocytes # 1.08 H 1.04 H (0.20-1.00) X 10*3/uL Eosinophils # 0.02 L 0.03 L (0.04-0.35) X 10*3/uL BUN/Creatinine Ratio 8.26 L (12.00-20.00) Ratio Microbiology - Last 24 Hours (Table) 10/13/22 18:45 Blood Culture - Preliminary Blood No Growth after 24 hours 10/13/22 17:00 Blood Culture - Preliminary Blood No Growth after 24 hours Assessment and Plan Plan: 1patient to the hospital with sepsis in this patient who did have fever tachycardia elevated white count source is complicated diverticulitis with perforation and small peridiverticular abscess we will need to cover for the enteric gram-negative both aerobes and anaerobes, with persistent fever could be either related to Levaquin resistant pathogen or the abscess which has not been draining 2-patient mention penicillin allergy as a child however has taken Augmentin since then clinically doubt true penicillin allergy and should be taken off his chart 3-discontinue Levaquin we will add cefepime 2 g every 8 hours continue with the Flagyl 4-we will recheck his inflammatory markers if any worsening of the white count of persistent fever may benefit from a repeat CAT scan We will follow on clinical condition and cultures to further adjust medication if needed Thank you for this consultation we will follow the patient along with you Time with Patient: Greater than 30
[2022-10-16] MEDS: DEXTROSE 5%-0.9% NACL 1,000 ML IV SCH ×4 (00:44→21:16)
[2022-10-16] MEDS: CEFEPIME 2 GM in SODIUM CHLORIDE 0.9% 100 ML IVPB SCH ×2 (00:44→08:35)
[2022-10-16] MEDS: ACETAMINOPHEN TAB 325 MG TAB PO PRN ×2 (03:07→17:00)
[2022-10-16] MEDS: HEPARIN SODIUM,PORCINE/PF 5,000 UNIT/0.5 ML SYRINGE SQ SCH ×3 (05:36→21:17)
[2022-10-16] MEDS: metroNIDAZOLE-NS PMX 500 MG in SALINE 1 100ML.BAG IVPB SCH (08:35)
[2022-10-16] MEDS: FAMOTIDINE 20 MG/2 ML VIAL IV SCH ×2 (08:36→21:17)
[2022-10-16 11:49] LABS: HCT 41.6 % (39.6-50.0); HGB 13.6 g/dL (13.0-17.0); MCH 30.6 pg (27.0-32.0); MCHC 32.7 g/dL (32.0-37.0); MCV 93.7 fL (80.0-97.0); Mean Platelet Volume 10.1 fL (9.5-12.2); NRBC Per 100 WBC 0 /100 WBCS (0.0-0.0); Platelet Count 280 X 10*3/uL (140-440); RBC 4.44 X 10*6/uL (4.40-5.60); RDW 12.3 % (11.5-14.5); WBC 7.15 X 10*3/uL (4.50-10.00)
[2022-10-16 12:15] LABS: African American GFR (CKD) 90.2 (60.0-200.0); Albumin 3.4 g/dL (3.8-4.9); Albumin/Globulin Ratio 1.09 (1.60-3.17); Anion Gap 12.7 mmol/L (10.00-18.00); BUN/Creat Ratio 8.99 Ratio (12.00-20.00); Blood Urea Nitrogen 9.4 mg/dL (9.0-27.0); Calcium 8.8 mg/dL (8.7-10.3); Carbon Dioxide 20.8 mmol/L (20.0-27.5); Globulin 3.1 g/dL (1.6-3.3); Non-African American GFR(CKD) 77.9 (60.0-200.0); Potassium 4.2 mmol/L (3.5-5.5); Total Bilirubin 0.3 mg/dL (0.30-1.20); Total Protein 6.4 g/dL (6.2-8.2)
[2022-10-16 12:28] LABS: Basophils # (A) 0.07 X 10*3/uL (0.00-0.10); Eosinophils # (A) 0.11 X 10*3/uL (0.04-0.35); Eosinophils % (A) 1.5 %; Immature Grans, Automated 0.3 %; Lymphocytes # (A) 1.74 X 10*3/uL (0.90-5.00); Lymphocytes % (A) 24.3 %; Monocytes # (A) 0.84 X 10*3/uL (0.20-1.00); Monocytes % (A) 11.7 %; Neutrophils # (A) 4.37 X 10*3/uL (1.80-7.70); Neutrophils % (A) 61.2 %
[2022-10-16 12:29] LABS: RBC Morphology NORMAL
[2022-10-16] MEDS: AMPICILLIN-SULBACTAM 3 GM in SODIUM CHLORIDE 0.9% 100 ML IVPB SCH ×2 (12:38→17:44)
--- NOTE | 2022-10-16 14:27 | P.PN ---
Subjective Progress Note Date: 10/16/22 This is a pleasant 57 years old male with no significant past medical history Presents because of abdominal pain as he describes as stomach and has been going on about 10 days He followed up with his PCP Dr. Perkins and he saw twice for his abdominal pain, last time he ordered a CT of the abdomen and That he was called and asked him to come to the emergency room. His pain is described as 2-3/10 in severity Rupa is much milder compared to last week as he describes, he is in the right mid abdomen. Nonradiating. Feels like cramping He states that he has some diarrhea and vomiting 1 week ago but now all these are when awake. Last bowel movement was twice this morning one of them was fine and the other one was close. No blood in the stool or vomiting. He denies any urinary symptoms, no chest pain dyspnea, no headache perfusion weakness or numbness He denies smoking alcohol or illicit drugs He had a fever of 100.4 on admission rest of vitals are unremarkable. He has mild leukocytosis of 12.2. Rest of CBC, BMP and liver enzymes are unremarkable. Lipase normal 205. EKG showing normal sinus rhythm at [address]-T changes Patient has CT report from this morning showing complicated diverticulitis with perforation and free air. Clearly abscess formation measuring 2.8 x 2.6 cm. This is not amenable to percutaneous access for drainage. Surgical consultation recommended. Colonic diverticulosis patient was started on D5 normal saline and Levaquin and Flagyl 10/15. Patient seen and examined. White count this morning is 11.7, hemoglobin 13.5. Patient states abdominal pain has improved, denies any nausea or vomiting. Current tolerating clear liquid diet 10/16. Patient seen and examined. Patient had low-grade fever overnight. Temperature this morning is 98, heart rate 70, blood pressure 120/76, respirations 18. States abdominal pain has improved REVIEW OF SYSTEMS: CONSTITUTIONAL: No fever, no malaise,. CARDIOVASCULAR: No chest pain, no palpitations, no syncope. PULMONARY: No shortness of breath, no cough, GASTROINTESTINAL: No diarrhea, no nausea, no vomiting, no abdominal pain. NEUROLOGICAL: No headaches, no weakness, PHYSICAL EXAMINATION: GENERAL: The patient is alert and oriented x3, not in any acute distress. Well developed, well nourished. HEENT: Pupils are round and equally reacting to light. EOMI. No scleral icterus. No conjunctival pallor. Normocephalic, atraumatic. No pharyngeal erythema. No thyromegaly. CARDIOVASCULAR: S1 and S2 present. No murmurs, rubs, or gallops. PULMONARY: Chest is clear to auscultation, no wheezing or crackles. ABDOMEN: Soft, nontender, nondistended, normoactive bowel sounds. No palpable organomegaly. MUSCULOSKELETAL: No joint swelling or deformity. EXTREMITIES: No cyanosis, clubbing, or pedal edema. NEUROLOGICAL: Gross neurological examination did not reveal any focal deficits. SKIN: No rashes. Assessment and plan acute complicated diverticulitis with perforation and abscess Sepsis with mild fever and leukocytosis secondary to above Abdominal pain secondary to above Obesity with BMI of 32.8 Colonic diverticulosis Plan: Monitor vital signs Monitor CBC Monitor CMP Advance diet to full liquid Antibiotics changed to IV cefotetan and Flagyl per ID Surgery evaluated the patient and recommended bowel rest and IV fluids, patient develops signs and symptoms of peritonitis, patient will be needing surgical intervention Pain medication Labs and medication were reviewed.. Continue same treatment. Continue with symptomatic treatment. Further recommendations as per clinical course of the patient Objective - Vital Signs Vital signs: Vital Signs Temp 98.0 F 10/16/22 07:17 Pulse 79 10/16/22 07:17 Resp 18 10/16/22 07:17 BP 128/76 10/16/22 07:17 Pulse Ox 96 10/16/22 02:53 FiO2 Intake & Output 10/15/22 10/16/22 10/16/22 18:59 06:59 18:59 Intake Total 1080 480 Balance 1080 480 Intake: Oral 1080 480 Other: Voiding Method Toilet # Voids 3 2 - Labs CBC & Chem 7: 10/16/22 05:48 10/16/22 05:48 Labs: Abnormal Lab Results - Last 24 Hours (Table) 10/15/22 Range/Units 04:47 Immature Gran # 0.05 H (0.00-0.04) X 10*3/uL Neutrophils # 8.78 H (1.80-7.70) X 10*3/uL Monocytes # 1.04 H (0.20-1.00) X 10*3/uL Eosinophils # 0.03 L (0.04-0.35) X 10*3/uL Microbiology - Last 24 Hours (Table) 10/13/22 18:45 Blood Culture - Preliminary Blood No Growth after 48 hours 10/13/22 17:00 Blood Culture - Preliminary Blood No Growth after 48 hours
[2022-10-16 20:16] VITALS: RESP 16
--- NOTE | 2022-10-16 20:37 | P.PN ---
Subjective Progress Note Date: 10/16/22 Principal diagnosis: diverticulitis with microperforation Developed abdominal pain about a week or so ago when on trip to [place]. Lyerly little better than got worse again. Was seen by his PCP a couple times and was eventually sent for a CT scan. CT reviewed, diverticulitis with microperforation with small abscess. Last colonoscopy was 5 years ago & was told he has diverticulitis; had a 10 year recall because no polyps. Milk leukocytosis on admission. No tachycardia. Feeling much better today. Pain resolved. Tolerating full liquids on my exam. Eager to go home. States he's not tolerating Unasyn. Endorses PCN allergy as child that made him not feel well. Objective - Vital Signs Vital signs: Vital Signs Temp 98.2 F 10/16/22 19:06 Pulse 98 10/16/22 19:06 Resp 16 10/16/22 19:06 BP 138/83 10/16/22 19:06 Pulse Ox 97 10/16/22 19:06 FiO2 Intake & Output 10/16/22 10/16/22 10/17/22 06:59 18:59 06:59 Intake Total 480 Balance 480 Intake: Oral 480 Other: # Voids 2 3 - Constitutional General appearance: Present: cooperative, no acute distress - EENT Eyes: Present: anicteric sclerae ENT: Present: hearing grossly normal - Neck Details: supple - Respiratory Details: non labored - Cardiovascular Rhythm: regular - Gastrointestinal Gastrointestinal Comment(s): non distended - Integumentary Integumentary: Present: normal - Neurologic Neurologic Comment(s): no gross deficits - Psychiatric Psychiatric Comment(s): cooperative, normal affect - Labs CBC & Chem 7: 10/16/22 05:48 10/16/22 05:48 Labs: Abnormal Lab Results - Last 24 Hours (Table) 10/16/22 Range/Units 05:48 BUN/Creatinine Ratio 8.99 L (12.00-20.00) Ratio Albumin 3.4 L (3.8-4.9) g/dL Albumin/Globulin Ratio 1.09 L (1.60-3.17) g/dL Microbiology - Last 24 Hours (Table) 10/13/22 17:00 Blood Culture - Preliminary Blood No Growth after 72 hours 10/13/22 18:45 Blood Culture - Preliminary Blood No Growth after 48 hours Assessment and Plan Assessment: abdominal pain, from acute diverticulitis with microperforation- resolved leukocytosis, low grade- resolved Plan: OK for softs in AM - if tolerates, OK for discharge from surgical standpoint continue abx - not tolerating Unasyn, maybe Cipro/Flagyl on discharge? will need outpatient colonoscopy in 6-8 weeks after symptom resolution will also need outpatient repeat CT scan to evaluate for interval resolution of small abscess Time with Patient: Less than 30
--- NOTE | 2022-10-16 21:49 | P.PN ---
Subjective Progress Note Date: 10/16/22 Principal diagnosis: Perforated diverticulitis with abscess Patient is a 57-year-old male presented to hospital with abdominal pain and fever, patient did have a CT suggestive perforated diverticulitis with abscess patient did have persistent fever with Levaquin and Flagyl prompting infectious disease consultation, patient did have penicillin ALLERGY as a child however has taken Augmentin without any problem On today's evaluation that is 10/16/2022, the patient overall fever pattern has improved did have a low-grade fever 100.3 earlier this morning, patient denies having any chest pain or shortness of breath or cough no nausea no vomiting no abdominal pain no diarrhea Objective - Vital Signs Vital signs: Vital Signs Temp 98.0 F 10/16/22 07:17 Pulse 79 10/16/22 07:17 Resp 18 10/16/22 07:17 BP 128/76 10/16/22 07:17 Pulse Ox 96 10/16/22 02:53 FiO2 Intake & Output 10/15/22 10/16/22 10/16/22 18:59 06:59 18:59 Intake Total 1080 480 Balance 1080 480 Intake: Oral 1080 480 Other: Voiding Method Toilet # Voids 3 2 - Exam GENERAL DESCRIPTION: Middle-age male up in the chair in no distress RESPIRATORY SYSTEM: Unlabored breathing , decreased breath sounds at bases HEART: S1 S2 regular rate and rhythm , ABDOMEN: Soft , no tenderness EXTREMITIES: No edema feet - Labs CBC & Chem 7: 10/16/22 05:48 10/16/22 05:48 Labs: Microbiology - Last 24 Hours (Table) 10/13/22 18:45 Blood Culture - Preliminary Blood No Growth after 48 hours 10/13/22 17:00 Blood Culture - Preliminary Blood No Growth after 48 hours Assessment and Plan (1) Diverticulitis of colon with perforation Current Visit: Yes Status: Acute Code(s): K57.20 - DVTRCLI OF LG INT W PERFORATION AND ABSCESS W/O BLEEDING SNOMED Code(s): 82054130 Plan: 1patient to the hospital with sepsis in this patient who did have fever tachycardia elevated white count source is complicated diverticulitis with perforation and small peridiverticular abscess we will need to cover for the e nteric gram-negative both aerobes and anaerobes, with persistent fever could be either related to Levaquin resistant pathogen or the abscess which has not been drained 2-patient mention penicillin allergy as a child however has taken Augmentin since then clinically doubt true penicillin allergy and should be taken off his chart 3- patient has been switched over to Unasyn 3 g every 6 hours we will recheck his inflammatory markers with a.m. lab patient will benefit from repeat CT if did have overall improvement may transition to oral antibiotics on discharge otherwise we will need IV Time with Patient: Less than 30
[2022-10-17] MEDS: AMPICILLIN-SULBACTAM 3 GM in SODIUM CHLORIDE 0.9% 100 ML IVPB SCH ×3 (02:50→11:47)
[2022-10-17] MEDS: ACETAMINOPHEN TAB 325 MG TAB PO PRN (02:59)
[2022-10-17 08:10] LABS: HCT 45.6 % (39.0-53.0); HGB 15.5 gm/dL (13.0-17.5); MCH 31.3 pg (25.0-35.0); MCHC 34.1 g/dL (31.0-37.0); Mean Platelet Volume 7.3; Platelet Count 305 k/uL (150-450); RBC 4.96 m/uL (4.30-5.90); RDW 12.2 % (11.5-15.5); WBC 6.5 k/uL (3.8-10.6)
[2022-10-17 08:27] VITALS: BP 133/78; PULSE 90; TEMP 97.8
[2022-10-17 08:40] LABS: ALT 124 U/L (4-49); AST 145 U/L (17-59); African American GFR (CKD) >90 (>60 ml/min/1.73 sqM); Albumin 3.6 g/dL (3.5-5.0); Alkaline Phosphatase 94 U/L (38-126); Anion Gap 10 mmol/L; Blood Urea Nitrogen 8 mg/dL (9-20); Calcium 9.2 mg/dL (8.4-10.2); Carbon Dioxide 22 mmol/L (22-30); Chloride 107 mmol/L (98-107); Globulin 3.7 g/dL; Glucose 101 mg/dL (74-99); Non-African American GFR(CKD) >90 (>60 ml/min/1.73 sqM); Potassium 4.6 mmol/L (3.5-5.1); Sodium 139 mmol/L (137-145); Total Bilirubin 0.5 mg/dL (0.2-1.3); Total Protein 7.3 g/dL (6.3-8.2)
[2022-10-17] MEDS: HEPARIN SODIUM,PORCINE/PF 5,000 UNIT/0.5 ML SYRINGE SQ SCH (08:56)
[2022-10-17] MEDS: FAMOTIDINE 20 MG/2 ML VIAL IV SCH (08:56)
[2022-10-17 11:57] LABS: Eosinophils # (M) 0.46 k/uL (0-0.7); Lymphocytes # (M) 2.41 k/uL (1.0-4.8); Monocytes # (M) 0.65 k/uL (0-1.0); Neutrophils # (M) 2.99 k/uL (1.3-7.7); Neutrophils % (M) 46 %; Nucleated Red Blood Cells 0 /100 WBC (0-0); Total Cells Counted 100
--- NOTE | 2022-10-17 13:05 | P.DS ---
Providers Date of admission: 10/13/22 16:59 Expected date of discharge: 10/17/22 Attending physician: Cal Barclay MD Consults: 10/13/22 16:57 Consult Physician Urgent Consulting Provider: Elisha Francis Consult Reason/Comments: Diverticulitis with perforation Do you want consulting provider notified?: Already Contacted 10/14/22 17:59 Consult Physician Urgent Consulting Provider: Carly Man Consult Reason/Comments: diverticulitis Do you want consulting provider notified?: Yes Primary care physician: Suzanne Perkins Hospital Course: Discharge diagnoses; acute complicated diverticulitis with perforation and abscess Sepsis with mild fever and leukocytosis secondary to above Abdominal pain secondary to above Obesity with BMI of 32.8 Colonic diverticulosis Hospital course; This is a pleasant 57 years old male with no significant past medical history Presents because of abdominal pain as he describes as stomach and has been going on about 10 days He followed up with his PCP Dr. Perkins and he saw twice for his abdominal pain, last time he ordered a CT of the abdomen and That he was called and asked him to come to the emergency room. His pain is described as 2-3/10 in severity Rupa is much milder compared to last week as he describes, he is in the right mid abdomen. Nonradiating. Feels like cramping He states that he has some diarrhea and vomiting 1 week ago but now all these are when awake. Last bowel movement was twice this morning one of them was fine and the other one was close. No blood in the stool or vomiting. He denies any urinary symptoms, no chest pain dyspnea, no headache perfusion weakness or numbness He denies smoking alcohol or illicit drugs He had a fever of 100.4 on admission rest of vitals are unremarkable. He has mild leukocytosis of 12.2. Rest of CBC, BMP and liver enzymes are unremarkable. Lipase normal 205. EKG showing normal sinus rhythm at [address]-T changes Patient has CT report from this morning showing complicated diverticulitis with perforation and free air. Clearly abscess formation measuring 2.8 x 2.6 cm. This is not amenable to percutaneous access for drainage. Surgical consultation recommended. Colonic diverticulosis patient was started on D5 normal saline and Levaquin and Flagyl 10/15. Patient seen and examined. White count this morning is 11.7, hemoglobin 13.5. Patient states abdominal pain has improved, denies any nausea or vomiting. Current tolerating clear liquid diet 10/16. Patient seen and examined. Patient had low-grade fever overnight. Temperature this morning is 98, heart rate 70, blood pressure 120/76, respirations 18. States abdominal pain has improved 10/17. Patient seen and examined. Patient doing much better, tolerating regular diet. No episodes of fevers. Patient was unable to tolerate Unasyn, antibiotics switched to Rocephin. Plan is for the patient to be discharged on oral Ceftin and Flagyl for 10 days Outpatient follow-up with ID and general surgery PHYSICAL EXAMINATION: GENERAL: The patient is alert and oriented x3, not in any acute distress. Well developed, well nourished. HEENT: Pupils are round and equally reacting to light. EOMI. No scleral icterus. No conjunctival pallor. Normocephalic, atraumatic. No pharyngeal erythema. No thyromegaly. CARDIOVASCULAR: S1 and S2 present. No murmurs, rubs, or gallops. PULMONARY: Chest is clear to auscultation, no wheezing or crackles. ABDOMEN: Soft, nontender, nondistended, normoactive bowel sounds. No palpable organomegaly. MUSCULOSKELETAL: No joint swelling or deformity. EXTREMITIES: No cyanosis, clubbing, or pedal edema. NEUROLOGICAL: Gross neurological examination did not reveal any focal deficits. SKIN: No rashes. Patient Condition at Discharge: Stable Plan - Discharge Summary Discharge Rx Participant: No New Discharge Prescriptions: New cefUROXime axetiL [Cefuroxime] 500 mg PO BID 10 Days #20 tab metroNIDAZOLE [Flagyl] 500 mg PO TID 10 Days #30 tab Discharge Medication List cefUROXime axetiL [Cefuroxime] 500 mg PO BID 10 Days #20 tab 10/17/22 [Rx] metroNIDAZOLE [Flagyl] 500 mg PO TID 10 Days #30 tab 10/17/22 [Rx] Follow up Appointment(s)/Referral(s): Suzanne Perkins DO [Primary Care Provider] - 1-2 days Elisha Francis DO [Doctor of Osteopathic Medicine] - 4 Weeks Carly Man MD [STAFF PHYSICIAN] - 1 Week
== END 2022-10-17 14:22 | disposition home or self-care (01) | DRG 872 ==
LOC: EC 15:13 → 4SSUR 16:59
PROVIDERS: ADMIT Internal Medicine; ATTEND Internal Medicine
DX: A41.9 Sepsis, unspecified organism (principal); K57.20 Diverticulitis of large intestine with perforation and abscess without bleeding; E66.9 Obesity, unspecified; K57.90 Diverticulosis of intestine, part unspecified, without perforation or abscess without bleeding; Z68.32 Body mass index [BMI] 32.0-32.9, adult; Z88.0 Allergy status to penicillin; Z28.310 Unvaccinated for COVID-19; Z28.21 Immunization not carried out because of patient refusal
CPT/HCPCS: 36415; 80048; 80053; 83605; 83690; 84145; 85025; 85610; 85730; 87040; 93005; 96365; 99285

== ENCOUNTER → 2022-10-13 | Outpatient (CLI) | payer OTHER ==
--- NOTE | 2022-10-13 15:02 | CT ---
EXAMINATION TYPE: CT abdomen pelvis w con CT DLP: 1705.9 mGycm, Automated exposure control for dose reduction was used. DATE OF EXAM: 10/13/2022 2:52 PM COMPARISON: None CLINICAL INDICATION:Male, 57 years old with history of R10.84 generalized abdominal pain; abd crampin g TECHNIQUE: Axial CT of the abdomen and pelvis. Sagittal and coronal reformats were created on a [employer] workstation. Contrast used:70 mL of Isovue 300 with IV Contrast, Oral contrast used: with Oral Contrast FINDINGS: LOWER CHEST: Unremarkable ABDOMEN LIVER: Unremarkable GALLBLADDER AND BILE DUCTS: Unremarkable. PANCREAS: Unremarkable. SPLEEN: Unremarkable. ADRENAL GLANDS: Unremarkable. KIDNEYS AND URETERS: No evidence of hydronephrosis or renal calculus. The ureters are unremarkable. PELVIS BLADDER: Unremarkable REPRODUCTIVE: Unremarkable. ABDOMEN & PELVIS STOMACH AND BOWEL: There is perforated colonic diverticulitis involving the sigmoid colon with free a ir and early abscess formation measuring 2.8 x 2.6 cm. Is adjacent fat stranding changes present. Sca ttered colonic diverticula. PERITONEUM/RETROPERITONEUM: No evidence of pneumoperitoneum or free fluid. VASCULATURE: No evidence of aortic aneurysm. MUSCULOSKELETAL: No acute osseous abnormalities LYMPH NODES: No gross evidence for lymphadenopathy. SOFT TISSUE/ABDOMINAL WALL: Fat-containing umbilical hernia. IMPRESSION: 1. Complicated diverticulitis with perforation and free air. Early abscess formation measuring 2.8 x 2.6 cm. This is not amenable to percutaneous access for drainage. Surgical consultation recommended 2. Clonic diverticulosis. The patient will be contacted and sent to the ER for further care per CT outpatient staff on 3 2:58 PM
== END | disposition home or self-care (01) ==
LOC: RADCTMAIN 13:04
PROVIDERS: ATTEND Family Medicine
DX: K57.20 Diverticulitis of large intestine with perforation and abscess without bleeding (principal); K57.30 Diverticulosis of large intestine without perforation or abscess without bleeding
CPT/HCPCS: 74177; Q9967

== ENCOUNTER → 2022-11-17 | Outpatient (CLI) | payer OTHER ==
--- NOTE | 2022-11-17 23:11 | CT ---
EXAMINATION TYPE: CT abdomen pelvis wo/w con CT DLP: 2665.1 mGycm, Automated exposure control for dose reduction was used. DATE OF EXAM: 11/17/2022 6:57 PM COMPARISON: CT abdomen pelvis most recent from 10/13/2022 CLINICAL INDICATION:Male, 57 years old with history of K57.20; Follow up for Diverticulitis with perf oration and free air TECHNIQUE: Axial CT of the abdomen and pelvis. Sagittal and coronal reformats were created on a [employer] workstation. Contrast used:100cc mL of Isovue 300 with IV Contrast, Oral contrast used: with Oral Contrast FINDINGS: LOWER CHEST: Unremarkable ABDOMEN LIVER: Unremarkable GALLBLADDER AND BILE DUCTS: Unremarkable. PANCREAS: Unremarkable. SPLEEN: Unremarkable. ADRENAL GLANDS: Unremarkable. KIDNEYS AND URETERS: No evidence of hydronephrosis or renal calculus. The ureters are unremarkable. PELVIS BLADDER: Unremarkable REPRODUCTIVE: Prostate is enlarged in size measuring 5.1 cm in transverse dimension. ABDOMEN & PELVIS STOMACH AND BOWEL: No evidence of bowel obstruction. Intervale near resolution of fat stranding capone es and inflammation seen on prior CT. There remains small amount of fat stranding on series 3 image 7 1. No organizing fluid collection. Scattered colonic diverticula are present. Free air visualized. PERITONEUM/RETROPERITONEUM: No evidence of pneumoperitoneum or free fluid. VASCULATURE: No evidence of aortic aneurysm. MUSCULOSKELETAL: No acute osseous abnormalities LYMPH NODES: No gross evidence for lymphadenopathy. SOFT TISSUE/ABDOMINAL WALL: Small fat-containing umbilical hernia. IMPRESSION: Interval improvement with near resolution of inflammation changes in the area of prior suspected k[place] y abscess formation. No evidence of pneumoperitoneum or significant complication. No organizing fluid collections. There remains scattered colonic diverticula.
== END | disposition home or self-care (01) ==
LOC: RADCTMAIN 16:35
PROVIDERS: ATTEND Surgery
DX: K57.20 Diverticulitis of large intestine with perforation and abscess without bleeding (principal); K57.30 Diverticulosis of large intestine without perforation or abscess without bleeding
CPT/HCPCS: 74178; Q9967